=== PATIENT | female | born 1965 | race Caucasian/White ===

== ENCOUNTER 2022-11-21 15:24 | Outpatient (OUT) | payer OTHER, SELFPAY ==
--- NOTE | 2022-11-21 | MM_ITS ---
Patient: YUNG SILVA Exam Date: 11/21/2022 : 1965 Gender:F Ordering : FELIPE RAINEY Admission #: [id number] Family : Order #: [id number] CLICK HERE TO VIEW EXAM kRADIOLOGY REPORT PROCEDURE: MM TOMOSYNTHESIS SCREENING BI COMPARISON: MG MAMM SCREEN 3D JUAN CAD, 10/25/2021. MG MAMM SCREEN 3D JUAN CAD, 09/27/2020. INDICATIONS: Z12.31 Calculator Name NCI Breast Cancer Risk Assessment Tool 5 Year Breast Cancer Risk 1.20% Lifetime Breast Cancer Risk 8.10% Personal Breast Cancer No Personal Ovarian Cancer No Treatments None Family Cancers None LOCATION: [facility] BREAST COMPOSITION: Extremely dense, which lowers the sensitivity of mammography. FINDINGS: DIAGNOSTIC CATEGORY 2--BENIGN FINDING. NO CHANGE FROM COMPARISON. Scattered benign-appearing calcifications are present. Scattered benign-appearing lymph nodes are present. RIGHT BREAST: No significant suspicious finding. LEFT BREAST: No significant suspicious finding. RECOMMENDATIONS: ROUTINE MAMMOGRAM AND CLINICAL EVALUATION IN 12 MONTHS. PLEASE NOTE: A NORMAL MAMMOGRAM DOES NOT EXCLUDE THE POSSIBILITY OF BREAST CANCER. A CLINICALLY SUSPICIOUS PALPABLE LUMP SHOULD BE BIOPSIED. Dictated by: Chaz Valdez MD on 11/22/2022 at 07:13 Approved by: Chaz Valdez MD on 11/22/2022 at 07:14
== END 2022-11-21 15:25 | disposition home or self-care (01) ==
LOC: MAMMO 15:24
DX: Z12.31 Encounter for screening mammogram for malignant neoplasm of breast (principal)
CPT/HCPCS: 77063; 77067